=== PATIENT | female | born 1980 ===

== ENCOUNTER → 2023-02-25 | Outpatient (CLI) | payer SELFPAY ==
[2023-02-25 18:31] LABS: Source, Urine Clean Catch
[2023-02-25 20:01] LABS: Bacteria Mod /hpf; Red Blood Cells, Urine Not Seen /hpf (0-2); Squamous Epithelial Cells Mod /hpf (Few)
[2023-02-25 20:20] LABS: Magnesium, Blood 2.1 mg/dL (1.6-2.4)
[2023-02-25 20:34] LABS: Albumin, Blood 3.7 g/dL (3.4-5.0); Albumin/Globulin Ratio 0.9 (0.8-1.8); Bilirubin, Total 0.2 mg/dL (0.1-1.0); Calcium, Blood 8.9 mg/dL (8.5-10.1); Creatinine, Blood 0.55 mg/dL (0.40-1.00); Globulin, Blood 4.2 g/dL (2.2-4.0); Potassium, Blood 3.7 mmol/L (3.5-5.5); Thyroid Stimulating Hormone 0.841 uIU/mL (0.360-4.800); Total Protein, Blood 7.9 g/dL (6.4-8.2)
== END | disposition home or self-care (01) ==
LOC: LAB SHORT 18:26 → LAB 18:26
PROVIDERS: Family Medicine
DX: R31.29 Other microscopic hematuria (principal); M79.604 Pain in right leg; E04.9 Nontoxic goiter, unspecified
CPT/HCPCS: 80053; 81015; 83735; 84443

== ENCOUNTER 2024-05-28 10:07 | Day surgery (SDC) | payer OTHER ==
[~2024-05-28] VITALS: Ht 152.4 cm; Wt 52.0 kg
[~2024-05-28 10:07] MED LIST: Lactated Ringer's 1,000 ML IV ONE; propofoL 50 ML IV ONE
[2024-05-28] MEDS ORDERED: Lactated Ringer's 1,000 ML IV ONE (11:17)
--- NOTE | 2024-05-28 12:10 | NUR ---
05/28/24 1210 SARITA MCLAUGHLIN OFFICIAL PHYSICIAN SCIENTIST UTILIZED W PT: CODE:[id number] PT STATES THAT SHE FEEL COMFIDENT WITH UNDERSTANDING ALL ASPECTS OF EXAM,CONSENT FORM AND WHAT TO EXPECT. END NOTE RDS
[2024-05-28 12:14] VITALS: BP 121/87
== END 2024-05-28 12:13 | disposition home or self-care (01) ==
LOC: ORSCSDS 10:07
PROVIDERS: Specialist
PROC: 0DB58ZX Excision of Esophagus, Via Natural or Artificial Opening Endoscopic, Diagnostic (ICD-10-PCS; principal; 2024-05-28 11:30)
PROC: 0DB68ZX Excision of Stomach, Via Natural or Artificial Opening Endoscopic, Diagnostic (ICD-10-PCS; principal; 2024-05-28 11:30)
DX: R13.10 Dysphagia, unspecified (principal); K29.70 Gastritis, unspecified, without bleeding; F17.210 Nicotine dependence, cigarettes, uncomplicated
CPT/HCPCS: 88305; 88312; 88342; J2704; J7120

== ENCOUNTER → 2024-08-03 | Outpatient (CLI) | payer OTHER ==
[2024-08-03 18:59] LABS: BASOPHILS ABSOLUTE AUTO 0.07 K/mm3 (0.00-0.23); BASOPHILS PERCENT AUTO 1 % (0-2); EOSINOPHILS ABSOLUTE AUTO 0.21 K/mm3 (0.00-0.68); EOSINOPHILS PERCENT AUTO 3 % (0-6); Hematocrit 29.4 % (33.0-51.0); Hemoglobin 7.9 g/dL (11.5-16.0); IMMATURE GRAN ABSOLUTE AUTO 0.02 K/mm3 (0.00-0.10); IMMATURE GRAN PERCENT AUTO 0 % (0-1); LYMPHOCYTES ABSOLUTE AUTO 1.58 K/mm3 (0.84-5.20); LYMPHOCYTES PERCENT AUTO 25 % (21-46); MONOCYTES ABSOLUTE AUTO 0.34 K/mm3 (0.16-1.47); MONOCYTES PERCENT AUTO 5 % (4-13); Mean Corpuscular HGB 16.4 pg (26.0-34.0); Mean Corpuscular HGB Conc 26.9 g/dL (31.5-36.5); Mean Corpuscular Volume 61 fL (80-100); NEUTROPHILS ABSOLUTE AUTO 4.21 K/mm3 (1.96-9.15); NEUTROPHILS PERCENT AUTO 65 % (41-73); RDW Standard Deviation 41.8 fL (35.1-46.3); Red Blood Cell Count 4.83 M/mm3 (3.80-5.20); White Blood Cell Count 6.43 K/mm3 (4.00-11.30)
[2024-08-03 19:05] LABS: Platelet Count 340 K/mm3 (150-400)
[2024-08-03 19:40] LABS: Alanine Aminotransfer (ALT/SGP 34 U/L (12-78); Albumin, Blood 3.8 g/dL (3.4-5.0); Alk Phos 82 U/L (50-136); Anion Gap 9 mmol/L (3-11); Aspartate Aminotrans (AST/SGOT 25 U/L (12-37); Beta HCG, Quantitative, Serum <1 mIU/mL (0-3); Bilirubin, Total 0.4 mg/dL (0.1-1.0); Blood Urea Nitrogen 6 mg/dL (8-24); Bun/Creatinine Ratio 12.6 (12.0-20.0); C-REACTIVE PROTEIN, EXT RANGE <0.290 mg/dL (0.000-0.300); CO2, Blood 25 mmol/L (21-32); Calcium, Blood 8.8 mg/dL (8.5-10.1); Chloride, Blood 105 mmol/L (98-108); Creatinine, Blood 0.48 mg/dL (0.40-1.00); Glomerular Filtration Rate 121 (60-); Glucose, Blood 77 mg/dL (70-99); Potassium, Blood 3.4 mmol/L (3.5-5.5); Sodium, Blood 136 mmol/L (136-145); Total Protein, Blood 7.8 g/dL (6.4-8.2)
[2024-08-06 15:32] LABS: HIV 1,2 COMBO ANTIGEN/ANTIBODY Negative (Negative)
[2024-08-06 16:58] LABS: SEX HORMONE BINDING GLOBULIN 80 nmol/L (25-122)
[2024-08-07 01:04] LABS: ANTI-NUCLEAR AB ANA,IGG ELISA None Detected (None Detected)
[2024-08-07 06:40] LABS: APTIMA MEDIA TYPE Urine; C. TRACHOMATIS BY TMA Negative (Negative); N. GONORRHOEAE BY TMA Negative (Negative); SPECIMEN SOURCE Urine
[2024-08-08 00:58] LABS: ESTRADIOL BY MASS SPEC 151.4 pg/mL; ESTROGENS TOTAL CALCULATION 303.7 pg/mL; ESTRONE BY MASS SPEC 152.3 pg/mL
[2024-08-08 03:00] LABS: 17-HYDROXYPROGESTERONE 69.03 ng/dL (<=206.00)
== END ==
LOC: LAB SHORT 08:20 → LAB 08:20
PROVIDERS: Nurse Practitioner Family
DX: R10.84 Generalized abdominal pain (principal); N94.89 Other specified conditions associated with female genital organs and menstrual cycle
CPT/HCPCS: 80053; 82671; 83001; 83002; 83498; 84144; 84270; 84702; 85025; 85651; 86038; 86140; 86304; 86592; 87389; 87491; 87591

== ENCOUNTER → 2024-08-28 | Outpatient (CLI) | payer OTHER ==
[2024-08-28 20:54] LABS: Iron Serum 12 ug/dL (50-170); Percent Saturation 2.2 % (15.0-50.0); Total Iron Binding Capacity 558 ug/dL (250-450)
[2024-08-28 21:20] LABS: Ferritin, Serum <1 ng/mL (8-252)
== END ==
LOC: LAB 18:46 → LAB SHORT 18:46
PROVIDERS: Nurse Practitioner Family
DX: D50.9 Iron deficiency anemia, unspecified (principal)
CPT/HCPCS: 82728; 83540; 83550